=== PATIENT | female | born 1935 | race Caucasian/White ===

== ENCOUNTER → 2020-04-21 11:37 | Outpatient (CLI) | payer MEDICARE ==
--- NOTE | ~2020-04-21 | HEMODYNAMI ---
PATIENT:NATALI SEGOVIA MEDICAL RECORD: [id number] : 37 LOCATION:[facility] ADMISSION DATE: 04/21/20 Generatedon:04/21/202013:09 Patient name: NATALI SEGOVIA Patient #: [id number] SSN: : 1935 Date of study: 04/21/2020 Page: Of Hemodynamic Procedure Report Patient Data Patient Demographics Procedure consent was obtained First Name: NATALI Gender: Female Last Name: LUCA : 1935 Patient #: [id number] Age: 84 year(s) Race: Unknown Additional ID: [id number] Contact details [address]: [address] [place] [address] State: [place] City: [place] Zip code: [address] Past Medical History Allergies: No known allergies Admission Admission Data Admission Date: 04/21/2020 Admission Time: 11:37 Procedure Procedure Types Cath Procedure Peripheral Cath Diagnostic Procedure Miscellaneous Cathetergram Procedure Description Procedure Date Procedure Date: 04/21/2020 Procedure Start Time: 13:03 Procedure End Time: 13:09 Procedure Staff Name Function Dillon Singer MD Performing Physician INDRA RUBIO RT Monitor Ricki Dyer RT Scrub Marianne Mota RN Nurse Procedure Data Cath Procedure Fluoroscopy Diagnostic fluoroscopy Total fluoroscopy Time: 0.7 time: 0.7 min min Contrast Material Contrast Material Type Amount (ml) Isovue 300 10 Hemodynamics Rest Pre Cath Intra NCS Post Cath Procedure Log Time Note 12:00:16 Use device set IR Diagnostic 12:00:17 Bag Decanter (2002S) opened to sterile field. 12:00:18 Sterile Angiographic Pack opened to sterile field. 12:00:18 Tegaderm 4 x 4 ([id number]) opened to sterile field. 12:13:56 Ricki Dyer RT (R) (CV) sent for patient. Start room use. 12:13:59 Time tracking: Regular hours (M-F 7:00 - 5:00) 12:19:02 Patient received from Other to IR Alert and oriented. Tansferred to table in Supine position. 12:19:04 Signed procedure consent form obtained from patient. 12:19:08 Warm blankets applied, and rodrigo hugger turned on for patient comfort. 12:: Correct patient and procedure confirmed by team. 12:19:13 - 12:19:17 Pre-procedure instructions explained to patient. 12:: Pre-op teaching completed and patient verbalized understanding. 12::30 Patient allergic to No known allergies 12::35 Is the patient allergic to Iodine/contrast media? No. 12:21:14 Right Abdomen was prepped with chlora-prep and draped in sterile fashion. 12:21:16 Alarms reviewed by RHazel NHazel 12::16 Sharps counted by scrub and verified by R.N. 12:21:23 Patient diabetic? Yes. 12:21:24 If diabetic: On Metformin? No 12:21:26 - 13:00:44 Physician arrived 13:01:01 --------ALL STOP TIME OUT------ 13:01:07 Final Timeout: patient, procedure, and site verified with staff and physician. All members of the team are in agreement. 13:03:12 Right abdomen site verified by team. 13:03:33 Procedure started. 13:03:33 Full Disclosure recording started 13:05:06 GLIDE WIRE Angled Super Stiff 180cm ([id number]) opened to sterile field. 13:07:54 Procedure ended.(Physican Out) 13:08:15 Fluoroscopy time 00.70 minutes. 13:08:17 Dose Area Product 5 mGy/cm. 13:08:20 Contrast amount:Isovue 300 10ml. 13:08:33 Post-op/insertion site Right Abdominal area dressed using a 4 x 4 and Tegaderm. 13:08:40 Post procedure instruction explained to patient.Patient verbalizes understanding. 13:08:42 Procedure and supply charges have been captured, reviewed, submitted an d are correct. 13:09:13 Operative report dictated upon procedure completion. 13:09:16 Report given to Other. 13:09:24 Procedure ended. 13:09:24 Full Disclosure recording stopped Device Usage Item Name Manufacture Quantity Catalog Hospital Part Current Minimal Lot# / Number Charge Number Stock Stock Serial# Code Bag Decanter Microtek 1 2001S [id number] () [employer] Sterile Cardinal 1 [id number] 5 Angiographic Health Pack Tegaderm 4 x 3M 1 [id number] 5 4 (1626W) GLIDE WIRE Terumo 1 [id number] 5 Angled Super Stiff 180cm ([id number]) Signature Audit [place] Stage Time Signature Unsigned Intra-Procedure 04/21/2020 INDRA RUBIO RT 1:09:39 PM (R) [facility] [address] [place] [address]
== END | disposition home or self-care (01) ==
LOC: D.RAD 11:37
PROVIDERS: ATTEND Surgery
DX: T85.691A Other mechanical complication of intraperitoneal dialysis catheter, initial encounter (principal); E11.22 Type 2 diabetes mellitus with diabetic chronic kidney disease; I12.0 Hypertensive chronic kidney disease with stage 5 chronic kidney disease or end stage renal disease; N18.6 End stage renal disease; Z99.2 Dependence on renal dialysis